=== PATIENT | male | born 1965 | race Caucasian/White ===

== ENCOUNTER 2017-09-08 07:29 | Observation (INO) ==
[2017-09-08] MEDS ORDERED: MORPHINE 2 MG/1 ML SYRINGE IV PRN (08:38)
[2017-09-08] MEDS ORDERED: ASPIRIN 325 MG TABLET PO STA (08:38)
[2017-09-08] MEDS ORDERED: ONDANSETRON 4 MG/2 ML VIAL IV PRN ×2 (08:38→12:15)
[2017-09-08] MEDS ORDERED: ENOXAPARIN 100 MG/ML SYRINGE SUBCUT STA (08:38)
[2017-09-08 08:47] LABS: Basophils % 0.3 % (0.0-0.8); Eosinophils # 0.2 10*3/uL (0.0-0.87); Eosinophils % 1.7 % (0.00-10.9); Hematocrit 49.4 VOL% (42.0-52.0); Immature Granulocytes % 0.6 %; Immature Granulocytes Absolute 0.05 #; Lymphocytes # 2.8 10*3/uL (1.4-4.0); Lymphocytes % 32.5 % (21.2-54.2); Mean Corpuscular HGB Conc 32.4 GM/DL (32-36); Mean Corpuscular Hemoglobin 30 PG (27-34); Mean Corpuscular Volume 93.6 FL (87-102); Mean Platelet Volume 9.9 FL (9.6-12.0); Monocytes # 0.7 10*3/uL (0.11-0.8); Monocytes % 7.7 % (1.7-12.7); Neutrophils # 4.9 10*3/uL (1.4-7.4); Neutrophils % 57.2 % (38.7-73.9); Platelet Count 248 T/CUMM (130-400); Red Blood Count 5.28 MC/CUMM (3.8-5.5); Red Cell Distribution Width 12.7 % (9.3-17.3); White Blood Count 8.6 T/CUMM (4-12)
[2017-09-08] MEDS ORDERED: ASPIRIN 325 MG TABLET ONE (08:52)
[2017-09-08] MEDS ORDERED: ENOXAPARIN 100 MG/ML SYRINGE SUBCUT ONE (08:52)
[2017-09-08 08:53] LABS: INR 0.9; PT Patient Result 9.7 SECS; Partial Thromboplastin Time 25.7 SECS (0-40)
[2017-09-08 09:04] LABS: Alanine Aminotransferase 59 U/L (16-61); Albumin 3.5 G/DL (3.4-5.0); Alkaline Phosphatase 57 U/L (45-117); Aspartate Amino Transferase 26 U/L (0-37); Bilirubin,Total < 0.39 MG/DL (0.2-1.0); Blood Urea Nitrogen 19 MG/DL (7-18); Calcium 9.5 MG/DL (8.5-10.1); Glucose 106 MG/DL (74-106); Osmolality,Calculated 280.4 MOS/KG (273-304); Potassium 4.7 MMOL/L (3.5-5.1); Sodium 140 MMOL/L (136-145); Total Protein 7.7 G/DL (6.4-8.3)
[2017-09-08 12:13] LABS: Apearance,Urine CLEAR (Clear); Bilirubin,Urine Negative (Negative); Blood, Urine Negative (Negative); Glucose,Urine (UA) Negative (Negative); Ketones,Urine Negative (Negative); Mucus,Urine Occasional /LPF (Occasional); Nitrite,Urine Negative (Negative); Protein,Urine Negative; RBC,Urine 1 /HPF (0-4); Urine Color Yellow (Yellow); Urine Specific Gravity 1.024 (1.001-1.035); Urine Urobilinogen < 2.0 EU/DL (0.2-1.0); WBC,Urine 3 /HPF (0-6)
[2017-09-08] MEDS ORDERED: SODIUM CHLORIDE 0.9% 1,000 ML IV SCH (12:15)
[2017-09-08] MEDS ORDERED: ACETAMINOPHEN 325 MG TABLET PO PRN (12:15)
[2017-09-08 12:18] LABS: Barbiturates Screen,Urine Positive (Negative); Benzodiazepines Screen,Urine Negative (Negative); Cannabinoid Screen,Urine Negative (Negative); Opiate Screen,Urine Negative (Negative); Phencyclidine Screen,Urine Negative (Negative)
[2017-09-08] MEDS ORDERED: AMITRIPTYLINE 25 MG TABLET PO SCH (21:00)
[2017-09-08] MEDS: DOCUSATE SODIUM 100 MG CAPSULE PO SCH (21:10)
[2017-09-09 05:45] LABS: Alanine Aminotransferase 51 U/L (16-61); Alkaline Phosphatase 50 U/L (45-117); Aspartate Amino Transferase 19 U/L (0-37); Bilirubin,Direct < 0.100 MG/DL (0.0-0.20); Bilirubin,Indirect 0.3 MG/DL (0.0-1.0); Cholesterol 204 MG/DL (50-200); HDL Cholesterol 35 MG/DL (40-60); Risk Ratio 5.83; Total Protein 6.2 G/DL (6.4-8.3); Triglycerides 223 MG/DL (2-150); VLDL CHOLESTEROL 44.6 MG/DL
[2017-09-09] MEDS ORDERED: PANTOPRAZOLE 40 MG TABLET PO SCH (09:00)
[2017-09-09] MEDS ORDERED: CETIRIZINE 10 MG TABLET PO PRN (12:22)
[2017-09-09] MEDS ORDERED: IBUPROFEN 400 MG TABLET PO ONE (12:22)
[2017-09-09] MEDS ORDERED: FLUTICASONE 50 MCG NASAL SPRAY 16 GM BOTTLE BOTH NARES SCH (12:30)
[2017-09-09] MEDS: DOCUSATE SODIUM 100 MG CAPSULE PO SCH (12:34)
[2017-09-09 16:16] VITALS: BP 135/71
== END 2017-09-09 16:44 | disposition home or self-care (01) ==
LOC: N.ED 07:29 → N.EDINP 07:29 → N.TELES 16:40
PROVIDERS: ADMIT Family Medicine; ATTEND Family Medicine